=== PATIENT | female | born 1995 | race African-American/Black ===

== ENCOUNTER 2017-02-27 13:04 | Emergency (ER) | payer MEDICAID ==
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
[2017-02-27 14:16] LABS: APPEARANCE,URINE CLOUDY; BILIRUBIN,URINE SMALL (NEGATIVE); GLUCOSE, URINE NEGATIVE (NEGATIVE); KETONES,URINE 80 mg/dL (NEGATIVE); LEUKOCYTE ESTERASE,URINE SMALL (NEGATIVE); NITRITE,URINE NEGATIVE (NEGATIVE); PROTEIN,URINE >=500 mg/dL (NEGATIVE); URINE SPECIFIC GRAVITY 1.032
[2017-02-27] MEDS ORDERED: NORMAL SALINE 1000 ML 1,000 ML IV ONE (14:29)
[2017-02-27] MEDS ORDERED: ONDANSETRON HCL INJ/PF 4 MG/2 ML SDV IV ONE (14:29)
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
[2017-02-27 14:56] LABS: ABSOLUTE LYMPHOCYTES (AUTO) 2.5 10^3/uL (0.5-4.7); ABSOLUTE MONOCYTES (AUTO) 1.1 10^3/uL (0.1-1.4); ABSOLUTE NEUT (AUTO) 7.7 10^3/uL (1.7-8.2); BASOPHILS % (AUTO) 0.3 % (0-2); HEMATOCRIT 50.1 % (36.0-47.0); HGB HCT DIFFERENCE 0.9; MEAN CORPUSCULAR HEMOGLOBIN 31.3 pg (27.0-33.4); MEAN CORPUSCULAR HGB CONC 33.8 g/dL (32.0-36.0); MEAN CORPUSCULAR VOLUME 93 fl (80-97); MONOCYTES % (AUTO) 9.8 % (3-13); RED BLOOD COUNT 5.42 10^6/uL (3.72-5.28); RED CELL DISTRIBUTION WIDTH 12.8 % (11.5-14.0); SEGMENTED NEUTROPHILS % (AUTO) 67.9 % (42-78); WHITE BLOOD COUNT 11.4 10^3/uL (4.0-10.5)
[2017-02-27 15:09] LABS: ALANINE AMINOTRANSFERASE 15 U/L (9-52); ALBUMIN 5.2 g/dL (3.5-5.0); ALKALINE PHOSPHATASE 78 U/L (38-126); ANION GAP 18 (5-19); ASPARTATE AMINO TRANSFERASE 24 U/L (14-36); BILIRUBIN,DIRECT 0.5 mg/dL (0.0-0.4); BILIRUBIN,TOTAL 0.9 mg/dL (0.2-1.3); BLOOD UREA NITROGEN 15 mg/dL (7-20); CALCIUM 10.7 mg/dL (8.4-10.2); CARBON DIOXIDE 20 mmol/L (22-30); CHLORIDE 107 mmol/L (98-107); CREATININE RESULT 0.86 mg/dL (0.52-1.25); GLUCOSE 95 mg/dL (75-110); POTASSIUM 4.4 mmol/L (3.6-5.0); TOTAL PROTEIN 10.1 g/dL (6.3-8.2)
[2017-02-27 18:09] LABS: CHLAM PCR NOT DETECTED (NOT DETECT)
[2017-02-27 19:21] VITALS: BP 118/75
--- NOTE | 2017-02-28 09:28 | ER Document Report ---
Doctor's Note Notes: 02/28/17 09:21 I was requested to perform pelvic exam by patient and PREETHI Huerta, patient has underlying mental health and possibly cognitive delays and was not comfortable having this exam performed by a male provider, RN assisted and chaperoned, according to patient grandmother at bedside, as patient is non-verbal for me, patient has not had an OBGYN evaluation in past, therefore I showed patient speculum and explained that I would be inserting it in her vagina for better examination, she demonstrated agreement by nodding her head, on visual exam patient was quite unclean in the pelvic area with a moderate amount of feces in her milo-rectal area and a whitish film in the perineum and external vaginal area, as soon as I inserted the speculum she became tense and attempted to close her legs, I was able to obtain swabs for sampling and observe a copious amount of greenish colored vaginal discharge with fishy odor, once I removed the speculum patient then completely closed her legs and would not allow for further examination
== END 2017-02-27 19:13 | disposition home or self-care (01) ==
LOC: ER 13:04
DX: N76.0 Acute vaginitis (principal); B96.89 Other specified bacterial agents as the cause of diseases classified elsewhere; R10.30 Lower abdominal pain, unspecified; R51 Headache; R53.1 Weakness; Z88.0 Allergy status to penicillin
CPT/HCPCS: 99284; 96361; 96374; 36415; 87210; 83690; 84703; 85025; 80053; 81001; 87491; 87591; J2405; J7030